=== PATIENT | male | born 1990 | race Caucasian/White ===

== ENCOUNTER 2018-04-02 17:27 | Emergency (ER) | payer OTHER ==
[~2018-04-02] VITALS: Ht 167.6 cm; Wt 70.3 kg
[2018-04-02 17:36] VITALS: BP 136/79
[2018-04-02] MEDS ORDERED: ACYCLOVIR 400400 MG PO (17:55)
[2018-04-02] MEDS ORDERED: NORCO 5-325 TA1 EACH PO (17:55)
== END 2018-04-02 18:01 | disposition home or self-care (01) ==
LOC: M.ERS 17:27
DX: B02.9 Zoster without complications (principal); F17.200 Nicotine dependence, unspecified, uncomplicated

== ENCOUNTER 2018-08-29 18:40 | Emergency (ER) | payer OTHER ==
[~2018-08-29] VITALS: Ht 167.6 cm; Wt 72.6 kg
[~2018-08-29 18:40] MED LIST: ACYCLOVIR 400400 MG PO; NORCO 5-325 TA1 EACH PO
[2018-08-29] MEDS ORDERED: MEDROLDOSEPACK PO (19:12)
[2018-08-29 19:21] VITALS: BP 153/97
== END 2018-08-29 19:22 | disposition home or self-care (01) ==
LOC: M.ERS 18:40
DX: M67.431 Ganglion, right wrist (principal); F17.210 Nicotine dependence, cigarettes, uncomplicated